=== PATIENT | male | born 1935 | race Caucasian/White ===

== ENCOUNTER 2018-04-27 10:15 | Inpatient (IN) | payer MEDICARE ==
[~2018-04-27] VITALS: Ht 177.8 cm; Wt 59.6 kg
[~2018-04-27 10:15] MED LIST: CLOP75 PO; LEVO750 PO
[2018-04-27 10:41] LABS: BASOPHILS ABSOLUTE AUTO 0.06 K/mm3 (0.00-0.23); BASOPHILS PERCENT AUTO 0 % (0-2); EOSINOPHILS ABSOLUTE AUTO 0.02 K/mm3 (0.00-0.68); EOSINOPHILS PERCENT AUTO 0 % (0-6); Hemoglobin 15.2 g/dL (13.5-17.5); IMMATURE GRAN PERCENT AUTO 1 % (0-1); LYMPHOCYTES PERCENT AUTO 5 % (21-46); MONOCYTES ABSOLUTE AUTO 1.47 K/mm3 (0.16-1.47); MONOCYTES PERCENT AUTO 9 % (4-13); Mean Corpuscular HGB 31.3 pg (26.0-34.0); Mean Corpuscular Volume 95 fL (80-100); Mean Platelet Volume 9.5 fL (9.1-12.4); NEUTROPHILS ABSOLUTE AUTO 14.14 K/mm3 (1.96-9.15); NEUTROPHILS PERCENT AUTO 85 % (41-73); Platelet Count 259 K/mm3 (150-400); RDW Coefficient Variation 15.1 % (11.7-14.2); RDW Standard Deviation 52.5 fL (35.1-46.3); Red Blood Cell Count 4.85 M/mm3 (4.30-5.90); White Blood Cell Count 16.69 K/mm3 (4.00-11.30)
[2018-04-27 10:58] LABS: Alanine Aminotransfer (ALT/SGP 47 U/L (12-78); Albumin, Blood 3.4 g/dL (3.4-5.0); Albumin/Globulin Ratio 0.8 (0.8-1.8); Alk Phos 93 U/L (50-136); Anion Gap 10 mmol/L (6-16); Aspartate Aminotrans (AST/SGOT 179 U/L (12-37); Bilirubin, Total 0.9 mg/dL (0.1-1.0); Blood Urea Nitrogen 16 mg/dL (8-24); Bun/Creatinine Ratio 22.5 (12.0-20.0); CO2, Blood 26 mmol/L (21-32); Calcium, Blood 8.8 mg/dL (8.5-10.1); Chloride, Blood 105 mmol/L (98-108); Creatinine, Blood 0.71 mg/dL (0.60-1.20); Globulin, Blood 4.2 g/dL (2.2-4.0); Glomerular Filtration Rate >60 (60-); Glucose, Blood 125 mg/dL (70-99); Potassium, Blood 3.9 mmol/L (3.5-5.5); Sodium, Blood 141 mmol/L (136-145); Total Protein, Blood 7.6 g/dL (6.4-8.2)
[2018-04-27 11:54] LABS: CPK Creatine Kinase 5060 U/L (39-308); Troponin I <0.015 ng/mL (0.000-0.040)
[2018-04-27 11:56] LABS: Source, Urine Catheter
[2018-04-27 12:08] LABS: Creatine Kinase MB 17.1 ng/mL (0.0-3.6); Creatine Kinase MB Index 0.3 (0.0-4.0)
[2018-04-27 12:15] LABS: Bilirubin, Urine Neg (Neg); Blood, Urine 2+ (Neg); Glucose Qualitative, Urine Neg (Neg); Ketones, Urine 3+ (Neg); Leukocyte Esterase, Urine Neg (Neg); Nitrite, Urine Neg (Neg); Protein, Urine 2+ (Neg); Specific Gravity, Urine 1.025 (1.003-1.022); Urobilinogen, Urine 1+ (Normal)
[2018-04-27 12:32] LABS: Appearance, Urine Clear (Clear); Color, Urine Yellow (P-Yellow)
[2018-04-27 12:33] LABS: White Blood Cells, Urine Not Seen /hpf (0-5)
[2018-04-27 12:34] LABS: Bacteria Not Seen /hpf; Mucus Light (0-Heavy); Squamous Epithelial Cells Few /hpf (Few)
--- NOTE | 2018-04-27 13:29 | NUR ---
Recieved Palliative consult for this patient. Pt was last seen in the hospital in September of 2017. At that time, he was found wandering in a field; family did not notice him leaving the home. This admit, his family found him on the couch, after being there at a full day and a full night, according to notes. Will plan on inital visit to assess how much education the family needs to take care of this pt, or support placement if family is unable to care for him with his dementia. Will remain available.
--- NOTE | 2018-04-27 15:00 | NUR ---
PT ARRIVED VIA GURNEY FROM ED. FEET DIRTY BUT ATTENDS CLEAN. SKIN VERY DRY. FELL ASLEEP ON ARRIVAL TO ROOM AND BED. NO FAMILY IN ATTENDANCE.
--- NOTE | 2018-04-27 19:11 | NUR ---
SHIFT SUMMARY PT HAS BEEN NONVERBAL ACCEPT A FEW INSTANCES OF MUMBLED NOISES WHILE LOOKING AT STAFF. COMPLETED BED BATH GIVEN WITH CREAM APPLIED TO SKIN. GENITALS RED AND MACERATED WITH TWO OPEN SPOTS ON UNDERSIDE OF PENIS. PROTECTIVE CREAMS APPLIED. LLE ANTERIOR DEAN WITH LARGE SCAB AND REDNESS ENCIRCLING LEG BUT MINIMAL HEAT. WINCES WHEN R FOOT TOUCHED OR MOVED. UNABLE TO DO EXTREMITY CHECKS FOR NEURO DUE TO INABILITY TO FOLLOW DIRECTIONS. HAS BEEN SLEEPING SINCE BATH COMPLETED. IV FLUIDS INFUSING. DOES HAVE REDDENED AREAS ON HIPS, HEELS, COCCYX WELL BRUISING TO R FLANK AND ARMS, AND A SCAB TO R KNEE.
--- NOTE | 2018-04-28 05:22 | NUR ---
SHIFT SUMMARY PATIENT REMAINS NONVERBAL WITH EYES CLOSED. OPENED EYES ONCE DURING VITALS. WILL MOVE ARMS AND SQUEEZE FINGERS WHEN PLACED IN HIS HANDS AT TIMES. NPO AND BEDFAST. PIV REMAINS INTACT. LF FINISHED INFUSING AT 75mL/HR X ONE BAG. MINIMAL RESPONSE FOR NEURO CHECKS AND NOT ABLE TO FOLLOW DIRECTIONS. NO S/S OF PAIN, SOB, AND N/V. VSS/AFEBRILE. BED ALARM ACTIVATED. SISTER WILL VISIT IN A.M. CALL LIGHT IN REACH. BED IN LOWEST POSITION. WILL CONTINUE TO MONITOR UNTIL DAY SHIFT NURSE ASSUMES CARE.
[2018-04-28 05:23] LABS: BASOPHILS ABSOLUTE AUTO 0.07 K/mm3 (0.00-0.23); BASOPHILS PERCENT AUTO 1 % (0-2); EOSINOPHILS ABSOLUTE AUTO 0.29 K/mm3 (0.00-0.68); EOSINOPHILS PERCENT AUTO 2 % (0-6); Hematocrit 42.1 % (37.0-53.0); Hemoglobin 13.3 g/dL (13.5-17.5); IMMATURE GRAN ABSOLUTE AUTO 0.07 K/mm3 (0.00-0.10); IMMATURE GRAN PERCENT AUTO 1 % (0-1); LYMPHOCYTES PERCENT AUTO 11 % (21-46); MONOCYTES PERCENT AUTO 10 % (4-13); Mean Corpuscular HGB 30.7 pg (26.0-34.0); Mean Corpuscular HGB Conc 31.6 g/dL (31.5-36.5); Mean Corpuscular Volume 97 fL (80-100); Mean Platelet Volume 9.4 fL (9.1-12.4); NEUTROPHILS ABSOLUTE AUTO 10.89 K/mm3 (1.96-9.15); NEUTROPHILS PERCENT AUTO 76 % (41-73); Platelet Count 221 K/mm3 (150-400); RDW Coefficient Variation 15.5 % (11.7-14.2); RDW Standard Deviation 55.9 fL (35.1-46.3); Red Blood Cell Count 4.33 M/mm3 (4.30-5.90); White Blood Cell Count 14.42 K/mm3 (4.00-11.30)
[2018-04-28 05:46] LABS: Anion Gap 9 mmol/L (6-16); Blood Urea Nitrogen 13 mg/dL (8-24); Bun/Creatinine Ratio 20.7 (12.0-20.0); CO2, Blood 26 mmol/L (21-32); Calcium, Blood 8.1 mg/dL (8.5-10.1); Chloride, Blood 110 mmol/L (98-108); Creatinine, Blood 0.63 mg/dL (0.60-1.20); Glomerular Filtration Rate >60 (60-); Glucose, Blood 77 mg/dL (70-99); Magnesium, Blood 2.2 mg/dL (1.6-2.4); Potassium, Blood 3.6 mmol/L (3.5-5.5); Sodium, Blood 145 mmol/L (136-145)
[2018-04-28 05:56] LABS: CPK Creatine Kinase 2409 U/L (39-308)
--- NOTE | 2018-04-28 11:40 | NUR ---
Pt was sleping when I entered the room and awakened slightly as I began to talk with him. He was so sleepy that all I could ask is if he would like some prayer. I provided prayer, patient thanked me then fell back to sleep. Pt continued resting peacefully with no signs of stress.
--- NOTE | 2018-04-28 15:10 | NUR ---
Phone call to family member, Willem, the patient uncle. My purpose for the call was to gather information on the patient's prior level of functioning in the home before admission. Willem states that pt lives in a home with himself, pt's mother (Namita), and the patient's son, Shawn. Pt usually is able to get around with a walker and sometimes walks without it at home. He requires help for showering and dressing. Willem cooks three meals per day, however, he reports that the patient just sits and looks at it for a while; sometimes does not eat the meal. Pt likes late night meals and is often up late nights eating. Previously, the patient lived with his daughter for a short period of time after his last year. Willem moved him over to [place] after the patient was told he was going to from skin cancer. Pt sees Dr. Riojas, and some problem areas were taken off - apparently "cured" the pt, per Willem. Pt is incontinent. Antibiotics were ordered by this doctor, and Willem reports that pt did not take medication properly - and in fact would put them in his mouth and let them set on his tongue without swallowing it. It seems from my conversation with Willem (who is the patient's uncle), that the patient's dementia has been in a steep decline. He is losing ability to perform ADLs, does not converse. FAST score is 7a, and now is perhaps worse, as ambulation has not been evaluated by PT. Recommend evaluation to determine actual ability and if the patient is able to follow directions. KPS score is 50%, PPS score is 50%. Has extensive disease. Will coordinate with older adult social work specialist. There is an open [facility] case to investigate neglect. There may be evidence to assert that the family was ill equiped to handle taking care of a severely demented patient. Pt was found wandering around in a field about 6 months ago without family's knowledge. Will follow up with family as needed for education. Pt's decision maker is to be his mother, Namita. She had her 89 year birthday over , and is still able to make choices, per Willem.
--- NOTE | 2018-04-28 18:00 | NUR ---
SHIFT SUMMARY PT A LITTLE MORE ALERT TODAY BUT STILL MINIMAL VERBAL RESPONSE. HAS DEVELOPED A MOIST COUGH. MOVING A LITTLE MORE IN BED. SISTER AND BROTHER HERE TO SEE PT THIS MORNING. REMAINS NPO AT THIS TIME. APD IN TO SEE PT APPROX 1030 AND REVIEWED PHOTOS OF PTS SKIN ISSUES.
--- NOTE | 2018-04-28 22:28 | NUR ---
PATIENT PULLING AT IV CORDS AND POLE AND WON'T LET GO. PATIENT NOT ABLE TO REORIENT AND FOLLOW DIRECTIONS. IV FLUIDS STOPPED UNTIL PATIENT IS SLEEPING AND WILL RESTART. CALL LIGHT IN REACH.
--- NOTE | 2018-04-29 00:29 | NUR ---
D5 1/2 NS KCL 10 MEQ INFUSING AT 75mL/HR. PATIENT SLEEPING. CALL LIGHT IN REACH. BED ALARM ACTIVATED.
--- NOTE | 2018-04-29 04:19 | NUR ---
SHIFT SUMMARY PATIENT MINIMALLY MORE ALERT THIS SHIFT. VERBAL WITH REPOSITIONING ON MOVEMENT. OPENS EYES WITH REPOSITIONING. EXPLAIN PROCEDURE WITH PATIENT TO REDUCE AGGRESSION. PATIENT WILL REPOSITION IN BED. PIV REMAINS INTACT. D5 1/2 NS [id number] INFUSING AT 75/HR. PATIENT AGGRESSIVE AT START OF SHIFT PULLING ON IV CORDS AND NOT RELEASING. IV FLUIDS STOPPED UNTIL PATIENT SLEPT. NO S/S OF PAIN, SOB, AND N/V. VSS/AFEBRILE. BED ALARM ACTIVATED. CALL LIGHT IN REACH. BED IN LOWEST POSITION. WILL CONTINUE TO MONITOR UNTIL DAY SHIFT NURSE ASSUME CARE.
[2018-04-29 05:22] LABS: Anion Gap 9 mmol/L (6-16); Blood Urea Nitrogen 10 mg/dL (8-24); Bun/Creatinine Ratio 15.9 (12.0-20.0); CO2, Blood 25 mmol/L (21-32); Calcium, Blood 7.9 mg/dL (8.5-10.1); Chloride, Blood 109 mmol/L (98-108); Creatinine, Blood 0.63 mg/dL (0.60-1.20); Glomerular Filtration Rate >60 (60-); Glucose, Blood 131 mg/dL (70-99); Potassium, Blood 3.4 mmol/L (3.5-5.5); Sodium, Blood 143 mmol/L (136-145)
[2018-04-29 05:38] LABS: CPK Creatine Kinase 1476 U/L (39-308)
--- NOTE | 2018-04-29 06:31 | NUR ---
PATIENT PULLED IV WHEN REPOSITIONING. NEW PIV PLACED. CALL LIGHT IN REACH.
--- NOTE | 2018-04-29 17:01 | NUR ---
PATIENT ORIENTED TO SELF ONLY, MOSTLY NONVERBAL. MULTIPLE SKIN ISSUES WITH FOAM DRESSINGS IN PLACE. TURNING Q2 HOURS. PIVOT TRANSFERS WITH GAIT BELT, FWW AND 2 ASSIST. REMAINS NPO. 20G RFA IV WNL WITH FLUIDS RUNNING AT 75ML/HR. FALL PRECAUTIONS IN PLACE. PT/OT/ST EVALUATED PATIENT. NO ACUTE CHANGES THIS SHIFT.
--- NOTE | 2018-04-29 21:24 | NUR ---
2010 PT LYING IN BED, EYES CLOSED, OCCASIONALLY WILL OPEN EYES BRIEFLY WHEN SPOKEN TO. ANSWERS YES OR NO OCCASIONALLY WHEN ASKED QUESTIONS AND DID SAY "WHAT?" ONCE WHEN HIS NAME WAS SAID. DENIES ANY DISCOMFORT AT THIS TIME. PT HAS HAD NO DOCUMENTED BM SINCE 04/27, WILL ASK DR FOR BOWEL CARE ORDERS. PT HAS REDNESS IN LE'S, BRUISES AND SCABS TO LE'S AND UE'S, WHITE NONBLANCHING SPOTS ON BOTTOM, EDEMA IN BILAT FEET WITH R BEING > THAN L. DAY RN REPORTED THAT WHEN PT WAS UP HIS R KNEE APPEARED TO BE STIFF. NO OTHER APPARENT SIGNS OF DISTRESS. CALL LIGHT IS IN REACH. BED ALARM IS ON.
--- NOTE | 2018-04-29 23:09 | NUR ---
ASSISTED RUBBER FACTORY WORKER IN TURNING AND CHANGING THE PATIENT. PT TOLERATED PROCEDURE WELL. NO APPARENT SIGNS OF DISTRESS. DENIES NEED FOR ANYTHING AT THIS TIME. CALL LIGHT IS IN REACH. BED ALARM IS ON.
--- NOTE | 2018-04-30 01:53 | NUR ---
PT LYING IN BED, AWAKE, DENIES NEED FOR ANYTHING AT THIS TIME. NO APPARENT SIGNS OF DISTRESS. CALL LIGHT IS IN REACH. BED ALARM IS ON.
--- NOTE | 2018-04-30 03:06 | NUR ---
PT IS ALERT, ORIENTED TO FAMILY. MOSTLY NONVERBAL BUT WILL SAY YES OR NO OCCASIONALLY AND SOMETIMES A COUPLE OF WORDS OCCASIONALLY. PT HAS NONBLANCHING WHITE AREAS ON BOTTOM, TURNING PATIENT Q2 HRS. PT HAS MULT SCABS AND BRUISES ALL OVER. BLISTERES ON R HIP. REDNESS AND EDEMA ON LE'S WITH THE R BEING MORE SWOLLEN THAN THE L. PER DAY RN, WHEN PT WAS UP, HIS R KNEE APPEARED TO BE STIFF. PT DENIED ANY DISCOMFORT FOR THIS SHIFT. ON RA AT 90%. NEEDS PLACEMENT.
--- NOTE | 2018-04-30 03:22 | NUR ---
PT LYING IN BED, EYES CLOSED, APPEARS TO BE RESTING. BREATHING IS EVEN, UNLABORED. NO APPARENT SIGNS OF DISTRESS. CALL LIGHT IS IN REACH. BED ALARM IS ON.
--- NOTE | 2018-04-30 05:02 | NUR ---
ASSISTED BANDER HAND IN CHANGING AND REPOSITIONING PT. PT IS SLIGHTLY NON COOPERATIVE WITH BEING MOVED AROUND. PT'S O2 WAS 86%, ATTEMPTED TO PUT 2L O2 NC ON PT, BUT PT IMMEDIETELY PULLED O2 OFF. WILL CONT TO MONITOR. NO OTHER APPARENT SIGNS OF DISTRESS. CALL LIGHT IS IN REACH. BED ALARM IS ON.
--- NOTE | 2018-04-30 05:57 | NUR ---
PT LYING IN BED, EYES CLOSED, APPEARS TO BE RESTING. BREATHING IS EVEN, UNLABORED. NO APPARENT SIGNS OF DISTRESS. CALL LIGHT IS IN REACH. BED ALARM IS ON. NO OTHER CHANGES THIS SHIFT.
[2018-04-30 09:06] LABS: Anion Gap 7 mmol/L (6-16); Blood Urea Nitrogen 8 mg/dL (8-24); Bun/Creatinine Ratio 14.1 (12.0-20.0); CO2, Blood 26 mmol/L (21-32); Calcium, Blood 7.8 mg/dL (8.5-10.1); Chloride, Blood 108 mmol/L (98-108); Creatinine, Blood 0.57 mg/dL (0.60-1.20); Glomerular Filtration Rate >60 (60-); Glucose, Blood 128 mg/dL (70-99); Potassium, Blood 3.3 mmol/L (3.5-5.5); Sodium, Blood 141 mmol/L (136-145)
--- NOTE | 2018-04-30 17:06 | NUR ---
PATIENT ORIENTED TO SELF, MOSTLY NONVERBAL. ST/PT ATTEMPTED TO WORK WITH PATIENT TODAY WITH LITTLE SUCCESS. PATIENT REMAINS NPO. K+ 3.3 THIS AM AND WAS REPLACED. 20G IV TO R FA WNL. TURNING Q2 HOURS, INCONTINENT OF URINE/STOOL. CONSULT FAXED TO ED FOR DR. ALLEN TO COME EVALUATE PATIENT. NO FAMILY AT BEDSIDE THIS SHIFT. MULTIPLE SKIN ISSUES WITH FOAM DRESSING TO HIPS BILATERALLY. LOVENOX FOR DVT PROPHYLAXIS. NO ACUTE CHANGES THIS SHIFT.
--- NOTE | 2018-04-30 21:54 | NUR ---
2100 PT LYING IN BED, DENIES ANY DISCOMFORT AT THIS TIME. SCABS AND BRUISES ON UE'S AND LE'S, REDNESS AND EDEMA IN LE'S/FEET WITH R > L. NONBLANCHING WHITE AREAS ON BOTTOM. BLISTERS ON R HIP. PT IS VERY WITHDRAWN, MOSTLY NONVERBAL WITH OCCASIONAL 1-2 WORD RESPONSES. PT DID GIVE VERBAL PERMISSION FOR ME TO SPEAK TO HIS NECHETNA COPELAND WHO CAME TO SEE HIM BRIEFLY TONIGHT. NO OTHER APPARENT SIGNS OF DISTRESS. CALL LIGHT IS IN REACH. BED ALARM IS ON. PT DID HAVE A COUPLE MORE VISITORS, ONE OF WHOM I ASSUME IS HIS SON BECAUSE HE REFERRED TO THE PATIENT "DAD", THE OTHER WAS A YOUNGER GENTLEMEN AND I AM NOT SURE OF THAT PERSONS RELATION TO THE PATIENT. THEY STAYED ABOUT 45 MINUTES OR SO AND THEN USED THE [facility] PHONE TO CALL FOR A RIDE.
--- NOTE | 2018-05-01 01:05 | NUR ---
ASSISTED BENCH LOOM WEAVER TO TURN AND CHANGE PATIENT, ADMINISTERED A STOOL SOFTENER SUPPOSITORY, WILL EVAL FOR EFFECT. PT TOLERATED WELL. NO APPARENT SIGNS OF DISTRESS. CALL LIGHT IS IN REACH. BED ALARM IS ON.
--- NOTE | 2018-05-01 02:08 | NUR ---
PT LYING IN BED, AWAKE, DENIES NEED FOR ANYTHING. NO APPARENT SIGNS OF DISTRESS. CALL LIGHT IS IN REACH.
--- NOTE | 2018-05-01 03:11 | NUR ---
PT IS ALERT BUT WITHDRAWN. ORIENTED TO FAMILY. ON RA, PT WILL NOT LET US PUT O2 ON HIM, O2 SAT IS 90%. PT DENIES ANY DISCOMFORT FOR THIS SHIFT BUT HE HAS STARTED TO COUGH. REDNESS AND EDEMA IN LE'S/FEET WITH R > L. SCABS AND BRUISES IN UE'S AND LE'S. SOME REDNESS ON HIS BOTTOM. USING CREAM ON HIS BOTTOM AND TURNING Q2 HOURS. LAST BM 04/27, GAVE SUPPOSITORY.
--- NOTE | 2018-05-01 05:21 | NUR ---
0400 PT LYING IN BED, EYES CLOSED, APPEARS TO BE RESTING. WAKES EASILY TO VERBAL STIMULI. NO APPARENT SIGNS OF DISTRESS. CALL LIGHT IS IN REACH.
[2018-05-01 05:22] LABS: Anion Gap 6 mmol/L (6-16); Blood Urea Nitrogen 8 mg/dL (8-24); Bun/Creatinine Ratio 15.1 (12.0-20.0); CO2, Blood 25 mmol/L (21-32); Calcium, Blood 7.9 mg/dL (8.5-10.1); Chloride, Blood 107 mmol/L (98-108); Creatinine, Blood 0.53 mg/dL (0.60-1.20); Glomerular Filtration Rate >60 (60-); Glucose, Blood 122 mg/dL (70-99); Potassium, Blood 3.9 mmol/L (3.5-5.5); Sodium, Blood 138 mmol/L (136-145)
--- NOTE | 2018-05-01 05:22 | NUR ---
PT LYING IN BED, EYES CLOSED, APPEARS TO BE RESTING. BREATHING IS EVEN, UNLABORED. NO APPARENT SIGNS OF DISTRESS. CALL LIGHT IS IN REACH. NO OTHER CHANGES THIS SHIFT.
[2018-05-01 05:23] LABS: CPK Creatine Kinase 604 U/L (39-308)
--- NOTE | 2018-05-01 14:41 | NUR ---
PAL CARE VISIT AND CASE CONFERENCE NOTE: Called by pt's RN, who is very concerned regarding pt's cont. decline with less responsiveness, increased weakness and nonverbal indicators of pain with change of positions, mvmt. Pt is not awake or able to take in PO nutrition or fluids. There has not been family in to discuss care with during day. No identified decision maker re: goals of care and current full code status at this time. EMR and Palliative Care notes reviewed. Pt's mother is 89 and recent contact with family memeber stated she was the medical decision maker. I called number for mom, TANA but call did not go thru and there was no voicemail available. I called the # for son, Shawn and reached Willem, who tells me he is the pt's brother. Willem felt Shawn, pt's son, would be the most appropriate family spokesperson/decision maker. Shawn came on the line and was very engaged in the conversation and voices similar concerns re: his dad's decline. He states his dad has withdrawn further and failed horribly since his (Shawn's mom) a year or so ago. I reviewed current care and code status and goals of care with Sahwn. Also discussed complications of bedrest, poor nutritional intake and comfort care. At this time Shawn would like to change his dad's code status to DNR. He does not want comfort care because he feels his mothers demise was hastened by having her on "comfort care". He would like to talk to the Dr further about comfort care tomorrow and plans to be in around 10 am. He does not want any agressive treatment initiated that would cause his dad more pain. He understands that any treatment done would not alter his end stage dementia state. I reviewed recent hip and chest xrays at his request. Results of my conversation shared with pt's RN and Dr May with orders obtained and entered for DNR. In assessing pt in his room he was in a side lying position with eyes closed, appears to be sleeping. He did not wake to verbal or tactile stimuli. I did not observe any nonverbal indicators of pain or distress while he was sleeping. RN reports painful behaviours noted with change of position or movement. Plan to f/u for support with pt's son tomorrow and for s/s management ongoing. I found no Care Management notes available to review on this admission but understood they were following from prev palliative care note. I will leave a voice mail message for care management also and request involvement again.
--- NOTE | 2018-05-01 15:10 | NUR ---
Addendum to previous Palliative Care note: Discussed use of tylenol suppository for pain per eMAR with RN.
--- NOTE | 2018-05-01 16:37 | NUR ---
PATIENT VERY DROWSY WITH VERY LITTLE VERBAL RESPONSE. 20G IV TO R FA WITH FLUIDS RUNNING. PATIENT REMAINS NPO. INCONITNENT OF URINE, PAINFUL WITH REPOSITIONING AND CHANGING. PALLIATIVE CARE SPOKE WITH FAMILY TODAY AND PATIENT WAS CHANGED TO DNR. MULTIPLE SKIN ISSUES WITH FOAM DRESSINGS COVERING. VSS THIS SHIFT, ON RA. ATTEMPTED TO DO ORAL CARE, BUT PATIENT WOULD NOT ALLOW. FALL PRECAUTIONS IN PLACE PER UNIT PROTOCOL.
--- NOTE | 2018-05-02 07:29 | NUR ---
SUMMARY: PT CONT'S VERY DROWSY, OPENING EYES TO VERBAL CUES BUT NONRESPONSIVE TO Q'S. FAMILY VISITED FROM [facility] THIS SHIFT AND SHAKA CAME IN PER THEIR REQUEST. HE REMAINED NONVERBAL WHILE THEY WERE HERE WELL. PT WAS REPOSITIONED Q2H W/ATTENDS CHANGED PRN FOR URINARY INCONTINENCE. MEPILIXES PRESENT TO HIPS AND BUTTOCKS AND CREAM APPLIED TO CAITIE AREA. PT ASSISTED W/TURNS BUT IS STIFF/RIGID AND HAS LEG CONTRACTURES. HEEL PROTECTORS IN PLACE. PT WAS MADE DNR DURING DAY SHIFT BUT NO DECISION HAS BEEN MADE TO MAKE HIM COMFORT CARE YET. HE REFUSES ORAL CARE AND ORAL INPUT. IVF INFUSING. NO ACUTE CHANGES, VSS/AFEBRILE. WILL MONITOR AND REPORT TO DAY RN.
--- NOTE | 2018-05-02 11:59 | NUR ---
Pt has worsened. She is back on bipap, requiring restraints. Reviewed with Cecilia, nurse. Will follow up with family when they arrive today, Cecilia to notify when they are here. Plan on discussing plan of care with Nickie, daughter.
--- NOTE | 2018-05-02 15:21 | NUR ---
Reviewed with Dr. May. Followed up with family. Shawn, son, is bedside. Looks like placement is what is needed here. Family ill-equiped to take care of patient with advanced dementia. Viviana, enterprise resource planner is also present and will work on placement. Reviewed with nurse Nadine.
--- NOTE | 2018-05-02 16:07 | NUR ---
Multiple attempts to see pt proved unsuccessful as pt was asleep and family was not present.
--- NOTE | 2018-05-02 17:49 | NUR ---
SHIFT SUMMARY PATIENT HAS WOKEN TO VOICE THIS SHIFT. HE MUMBLES YES NO WHICH APPEARS APPROPRIATE TO THE QUESTION. HE IS ABLE TO FOLLOW SIMPLE DIRECTIONS WITH TURNS AND CHANGES. MEPILEX'S IN PLACE FOR PREVENTION OF ANY PRESSURE BREAKDOWN. PILLOWS PLACES AT BONY PROMINENCES WELL. CURRENTLY NPO PENDING SPEECH EVAL.
--- NOTE | 2018-05-03 04:38 | NUR ---
SUMMARY: PT MORE INTERACTIVE THIS SHIFT AND IS ANSWERING YES/NO Q'S. HE IS MORE ALERT AND OPENS EYES TO VOICE AND SPONTANEOUSLY. HE REMAINS FLAT AND WITHDRAWN W/FTT APPEARANCE BUT STRENGTH SLIGHTLY IMPROVED AND HE ASSISTS W/REPOSITIONING. PT DENIES PAIN AND ALL OTHER COMPLAINTS BUT CONT'S TO REFUSE MOUTH CARE AND ORAL INTAKE. ATTENDS CHANGED PRN FOR INCONTINENCE AND PILLOWS PLACED AT BONY PROMINENCES FOR SBD PREVENTION. MEPILEXES REMAIN C/D/I TO HIPS AND BUTTOCKS. BLISTERS ON HIPS STILL PRESENT AND OTHER VARIOUS ABRASIONS, REDNESS AND BRUISES OBSERVED TO BLE'S. LOTION APPLIED TO CAITIE AREA AND BUTTOCKS, SKIN CONDITION IMPROVIND. NO ACUTE CHANGES, VSS/AFEBRILE.
--- NOTE | 2018-05-03 15:08 | NUR ---
attempted to shave and do oral care on patient during bed bath. patient refused these care. closed mouth tight and swatted my hands away. Patient responded to name stating "What", and saying "leave me alone". followed directions regarding turning with bed bath care. attempted to reposition to r side, continues to get himself back onto l side. pillows positioned on pressure points.
--- NOTE | 2018-05-04 04:23 | NUR ---
SHIFT SUMMARY: PT MOSTLY NONVERBAL. ANSWERED Y/N QUESTIONS DURING ASSESSMENT. COOPERATIVE WITH CARE. PT WAS TURNED AND CHANGED T/O SHIFT. PILLOW PLACED BETWEEN KNEES. PT VERY STIFF AND RIGID. MEPILEXES TO BILAT HIPS FOR EXTRA PROTECTION. NO COMPLAINTS. PT RESTED WELL. NO ACUTE CHANGES. WILL CONTINUE TO MONITOR AND PROVIDE CARE UNTIL SHIFT REPORT.
--- NOTE | 2018-05-04 16:10 | NUR ---
SHIFT SUMMARY- PT AXO TO SELF. PT ABLE TO TELL ME HIS NAME AND THIS AM. PT ABLE TO ANSWER YES/NO QUESTIONS. PT STILL SPEAKING IN A WHISPERY VOICE. ST IN TO TODAY TO EVALUATE PT. PHYISICAL THERAPY AND OT IN TO SEE PT. OT WAS ABLE TO GET PT TO QUALITY CONTROL PROJECTIONIST FRONT OF THE BED FOR A FEW SECONDS WITH 1 ASSIST, GAIT BELT AND FWW. PT DENIES PAIN. DENIES N/V. DENIES SOB. RESP E/U ON RA. PT ON BEDREST AT THIS TIME. TURNS Q2H. PT IS AWAITING PLACEMENT. NO OTHER SIGNIFICANT CHANGES THIS SHIFT.
--- NOTE | 2018-05-05 05:21 | NUR ---
Rn summary: Patient is failure to thrive. Pt has not responded to this writer producer verbally at all. Pt breath sounds are diminished, breaths are shallow and he doesnt understand to take a breath breath when asked. Patient has a weak non productive cough. He is incontinent of urine and has been turned and change frequently. Urine output is getting less. Not awake enough to give fluids to at this time. Pt with multiple skin issues, small scabs all over back and side of abdomen, mepilex to chaim hips, red area left dukes. Plan is for placement or home with hospice if okay with [facility]PS. Will continue to monitor.
--- NOTE | 2018-05-05 10:37 | NUR ---
AM ASSESSMENT PT LYING ON L SIDE, ALMOST POSITION. HE DOES NOT OPEN EYES TO VERBAL STIM OR PHYSICAL AROUSAL. DOES NOT FOLLOW ANY COMMANDS OR NOD YES/NO @ THIS TIME. SPOKE TO SPEECH THERAPIST R/T FEEDING PLAN, STATE DO NOT ATTEMPT TO GIVE ORAL UNLESS PT AWAKE/ALERT & ASKING FOR SOMETHING TO EAT/DRINK. BP 98/57, TEMP 99.6
--- NOTE | 2018-05-05 11:19 | NUR ---
TRIED TO POSITION PATIENT OFF HIS LEFT SIDE. PATIENT PUSHES TO RETURN TO THE LEFT SIDE. WE PLACED TWO PILLOWS UNDER HIS LEFT SIDE AND ONE BETWEEN HIS KNEES TRYING TO KEEP PATIENT OFF LEFT SIDE FOR A LITTLE WHILE.. ALSO PLACED HEEL PROTECTORS
--- NOTE | 2018-05-06 05:55 | NUR ---
Rn summary: Patient has opened eyes spontaniously this shift, he has nodded yes and no appropriately to questions. He shakes his head no to having pain. Pt has been incontinent of urine and has been turned q 2hours. He continues to have mepilex to chaim hips, clean dry and intact. Pt has rash/scabs on back and around to sides of abdomen. Pt continues to refuse oral care, he resists even having his lips cleaned with a cool cloth. Slight temp of 99.8 this am. Pt is NPO and has no fluids going. Waiting for either placement or DC home on hospice per case manaement. Bed to lowest positon. Call light i reach although he has not used it.
--- NOTE | 2018-05-06 12:46 | NUR ---
PT IS MORE ALERT TODAY, OPENS EYES TO NAME, ANSWERS YES/NO TO VERY SIMPLE QUESTIONS, WHEN ASKED IF HUNGRY OR THISTY STATES "GETTING THAT WAY". HE HAS TAKEN SM AMTS HONEY THICK FLUIDS. CALLED SPEECH THERAPY TO SEE IF THEY WILL RE-EVAL. PT CONTINUES VERY WEAK/FATIGUED HOWEVER SAT UP ON EDGE OF BED WITH ASSIST DURING OCC THERAPY.
--- NOTE | 2018-05-06 14:21 | NUR ---
SUMMARY PT CONTINUES WEAK/FATIGUED. DOES NOT ATTEMPT TO GET OOB OR CHANGE POSITIONS. TURN & SUPPORT W PILLOWS APPROX Q2. HE HAS BEEN MORE ALERT TODAY, OPENING EYES TO VERBAL STIM/NAME. ABLE TO STATE THIRST/HUNGER, ST EVAL FROM YESTERDAY OK FOR SPOONFULS HONEY THICK FLUIDS IF ALERT/AWAKE, HAVE ASSISTED W FLUIDS MULT X'S TODAY. CALLED ST FOR RE-EVAL HOWEVER THEY HAVE NOT BEEN IN YET TODAY. ASSISTED PT TO SIT UP TODAY W OCC THERAPY, HE WAS ABLE TO PARTICIPATE HOWEVER VERY WEAKLY. NO SYMPTOMS OF PAIN DURING THERAPY. VSS.
--- NOTE | 2018-05-07 04:57 | NUR ---
SHIFT SUMMARY RESPONDS TO VERBAL STIMULI; ONE-TWO WORD ANSWERS TO SIMPLE QUESTIONS. NO NON-VERBAL S/SX OF PAIN/DISCOMFORT. REPOSITIONED T/O SHIFT. SLIGHT TEMPERATURE NOTED THIS AM. APPEARED TO REST MUCH OF SHIFT. NO OTHER ACTUE CHANGES NOTED OVERNIGHT. BED IN LOWEST POSITION. ALARM ON. CALL LIGHT WITHIN REACH. WCTM. REPORT TO ONCOMING RN.
--- NOTE | 2018-05-07 16:18 | NUR ---
SHIFT SUMMARY. PT LETHARGIC, APPEARS TO SLEEPING MOST OF THE SHIFT. AROUSES WITH VERBAL STIMULATION. PT APPEARED PAINFUL THIS AM WITH REPOSITIONING AND INCONTINENCE CARE. PT VERY STIFF JOINTS, PRN APAP SUPPOSITORY GIVEN. NO RESPIRATORY DISTRESS, PT WITH SHALLOW BREATHING AND DIM LUNGS SOUNDS. NO OBSERVED N/V. PT IS VERY FRAIL APEARING, NO PO INTAKE THIS SHIFT, PT REFUSING ORAL CARE PER MACHINE SPECIALIST. MEPILEX PREVENTATIVE DRESSINGS TO BILATERAL HIPS, COCCYX C/D/I. NO NEW CHANGES. NO VISITORS THIS SHIFT.
--- NOTE | 2018-05-08 04:28 | NUR ---
SHIFT SUMMARY RESPONDS TO VERBAL STIMULI/NAME. NO VERBAL OR NON-VERBAL S/SX OF PAIN/DISCOMFORT UNTIL THIS AM. WILL MEDICATE PER EMAR. REFUSED VITAL SIGNS AT BEGINNING OF SHIFT; TAKEN @ 2233 VS REMAIN ON TREND WITH PREVIOUS. SLIGHT TEMP NOTED @ 99.2. TURNED PERIODICALLY THROUGHOUT SHIFT. APPEARED TO REST OFF AND ON. BED IN LOWEST POSITION. ALARM ON. CALL LIGHT IN REACH. WCTM. REPORT TO ONCOMING RN.
--- NOTE | 2018-05-08 10:54 | NUR ---
FAMILY AT BEDSIDE. PALLIATIVE CARE NOTIFIED. HEARD PT COUGHING WHILE SITTING OUTSIDE OF ROOM. HEARD FAMILY MEMBER SAY, "DID HE EAT IT ALL?" HEARD REPLY FROM OTHER FAMILY MEMBER, "HE ATE IT ALL," THE OTHER FAMILY MEMBER REPLIED, "OH GOOD." WILL SPEAK WITH FAMILY.
--- NOTE | 2018-05-08 13:46 | NUR ---
Called and spoke with Willem, the patient's brother. Reviewed condition of the pt and requested that they come in to meet and discuss plan of care. After they arrive, I tell them that he is advancing in his dying process and there is a need to change is care plan to accomodate his new needs. Reviewed comfort care risk and benefit. They finally agree to place the patient on comfort care. They ask again about going home on hospice. This is the case that [facility] is currently investigating and it is not clear yet if this patient can return home with the family. Agreed that he would likely be better if he is around family. Encouraged to make conversation in the room. They are turning on his favorite shows and will spend time in the room with him. Encouraged sharing memories and encourage PO intake. Family states that he ate some applesauce for them before I arrived. Placed comfort care orders. Care managers to continue with investigation and discharge plan on Wednesday.
--- NOTE | 2018-05-08 13:47 | NUR ---
PT RESTING COMFORTABLY. INCONTINENCE CARE AND REPOSITIONING COMPLETE. WILL INSERT DUKE CATHETER PER ORDER AT NEXT INCONTINENCE CARE. NO S/SX OF DISCOMFORT OR DISTRESS.
--- NOTE | 2018-05-08 17:20 | NUR ---
SHIFT SUMMARY. PT WITH NO S/SX OF DISCOMFORT OR DISTRESS DURING SHIFT. INCONTINCE CARE AND REPOSITIONING ROUTINELY. URINE OUTPUT MINIMAL. MEPILEX TO BILATERAL HIPS INTACT FOR PROPHOLAXIS. FAMILY IN ROOM INTERACTING WITH PT INTERMITTENTLY THROUGHOUT SHIFT.
--- NOTE | 2018-05-08 22:19 | NUR ---
1900 APPEARS TO BE RESTING. GOOD BODY ALIGNMENT. EQUAL RESPIRATIONS. NO C/O PAIN/DISCOMFORT AND NO NON-VERBAL S/SX. BED IN LOWEST POSITION. CALL LIGHT IN REACH.
--- NOTE | 2018-05-08 22:21 | NUR ---
COMFORT CARE 9 NO ACUTE DISTRESS. STATES NO PAIN. NO NOTED NON-VERBAL S/SX OF PAIN/DISCOMFORT. REFUSED ORAL CARE. BED IN LOWEST POSITION. CALL LIGHT IN REACH.
--- NOTE | 2018-05-09 00:38 | NUR ---
COMFORT CARE 2350 APPEARS TO BE RESTING COMFORTABLY. REPOSITIONING COMPLETED Q2. REMAINS NPO AND REFUSES ORAL CARE. NO ACUTE CHANGES NOTED. BED IN LOWEST POSITION. CALL LIGHT IN REACH. WCTM.
--- NOTE | 2018-05-09 04:25 | NUR ---
COMFORT CARE 0135 APPEARS TO BE RESTING COMFORTABLY. CONTINUES TO BE TURNED. NO ACUTE CHANGES. RESPIRATIONS EVEN. WCTM. BED IN LOWEST POSITION. CALL LIGHT IN REACH
--- NOTE | 2018-05-09 05:15 | NUR ---
COMFORT CARE 0315 STATED PAINFUL. SHOWING SIGNS OF PAIN. RETRIVED ROXANOL PER ORDERS; PT REFUSED AND STATED NOT IN PAIN ANY LONGER. BED IN LOWEST POSITION. CALL LIGHT IN REACH.
--- NOTE | 2018-05-09 06:20 | NUR ---
SHIFT SUMMARY ALERT TO VERBAL STIMUL. ANSWERS QUESTIONS BUT OFTEN TIMES NOT CONFUSION IS NOTED. NOTABLY PAINFUL WITH REPOSITIONING; MEDICATED PER EMAR. ORAL CARE REFUSED. NO OVERALL CHANGES OVERNIGHT. BED IN LOWEST POSITION. CALL LIGHT IN REACH. WCTM. REPORT TO ONCOMING RN.
--- NOTE | 2018-05-09 06:28 | NUR ---
COMFORT CARE 0550 APPEARED PAINFUL; SCORED A 4/5 ON CNVI SCORING; MEDICATED PER EMAR. REPOSITIONED. STILL REFUSING ORAL CARE. BED IN LOWEST POSITION. ALARM ON. CALL LIGHT IN REACH. WCTM.
--- NOTE | 2018-05-09 10:40 | NUR ---
PT RESTING COMFORTABLY. APPEARS TO BE SLEEPING WITH NO S/SX OF DISCOMFORT OR DISTRESS.
--- NOTE | 2018-05-09 16:47 | NUR ---
COMFORT CARE VISIT. Case conferenced with FÉLIX Mccormick and RN prior to my visit. Pt in left side-lying position, eyes closed. He did not wake to verbal or tactile stimuli. His breathing is even and unlabored. No nonverbal indicators of pain noted. RN reports he is stiff with position changes. He does not allow administration of any oral or sublingual meds when awake. He has not had PO intake of food/fluids for one week. Pt with attends for output. RN giving tylenol OR prn for discomfort. He feels pt's s/s are well managed at this time. No family present during my visit. Will continue to assess daily for s/s and be available as support to family as needed.
--- NOTE | 2018-05-09 18:22 | NUR ---
SHIFT SUMMARY. PT RESTING, APPEARING TO SLEEP MOST OF THE SHIFT. ROUTINE INCONTNENCE CARE AND REPOSITING. PT CONTINUES TO REFUSE ORAL CARE. PT WILL TAKE A FEW SPOONFULLS OF THICKENED LIQUIDS WHEN ALERT, ALTHOUG PT STILL COUGHS OCCASSIONALLY WITH PO INTAKE. SPOKE WITH FLANGER, SHE REPORTED THAT SHE HAS NOT YET HEARD BACK FORM APS. NO NEW CHANGES.
--- NOTE | 2018-05-10 05:29 | NUR ---
SHIFT SUMMARY PT ADMITTED FOR RHABDOMYLYSIS. COMFORT CARE PT. [facility]. SPOON FED FLUIDS. HONEY THICK LIQUIDS. CONTRACTURE TO LEGS. PT PRESENTED TO THE ED VIA EMS AFTER BEING CALLED FOR PT NO HAVING MOVED FROM POSITION ON THE COUCH X1 DAY. EMS FOUND THE PT LYING ON HIS R SIDE COVERED IN URINE AND FECES. THE PT IS NON-VERBAL AT BASELINE PER REPORT. HOWEVER, FAMILY STATES THAT THE PT TALKS TO THEM SOMETIMES WHEN HE WANTS THINGS BUT NOT OFTEN. THE PT IS NOTED TO HAVE ADVANCED DEMENTIA. THE PT WILL LIKELY NEED PLACEMENT THE PT DOES NOT SEEM WELL CARED FOR PER REPORT. THE PT IS NOTED A NEGLECTED ELDER WITH FAILURE TO THRIVE AND ADVANCED VASCULAR DEMENTIA. ST ATTEMPTED TO EVAL PT BUT PT BECAME COMBATIVE AND UNABLE TO PERFORM EVALUATION. APS IS NOTED TO BE INVOLVED. NO APPARENT ACUTE CHANGES SO FAR THIS SHIFT. Q 2 HR TURNS TOLLERATED. PT DOES NOT RESPOND OR FOLLOW DIRECTION. PT DOES NOT DEMONSTRATE ANY NON-VERBAL INDICATORS OF PAIN OR ANXIETY. FREQUENT VISUAL CHECKS IT DOES NOT APPEAR THAT PT USES CALL LIGHT APPROPRIATELY.
--- NOTE | 2018-05-10 10:06 | NUR ---
[facility] COMFORT CARE VISIT 0930 Assessed for comfort. Pt with eyes open but did not respond to verbal or tactile stimuli initially. He is in left side-lying position with hob elevated. When I said good morning he did look at me and track with his eyes. I asked him if he was hurting but had no verbal response or nods. RN reports that pt was able to say yes, when she asked him earlier if he was hurting and she administered 5 mg or Roxanol. I attempted oral care as I have done before and I got further, minimally, than previous attempts. soon as I was able to get toothette into mouth he clamped teeth closed so I was not able to do thorough oral care. Pt appears extremely dry, emaciated. He has continued with no oral intake for past week. I spent some quiet time with pt with hand on his hand. Report given to RN on my visit. No family present this am or yesterday per nursing.
--- NOTE | 2018-05-10 11:00 | NUR ---
Spoke with family in joint visit with Viviana, retail planner. Arrangements were discussed. Family seems loving and wanting to take patient home. Pt has just gotten a dose of roxanol and is resting comfortably. No edema noted, no mottling. Family is feeding patient small things - they had asked for jello to feed him. Will remain available.
--- NOTE | 2018-05-10 17:49 | NUR ---
SUMMARY PT RESTING QUIETLY IN BED, WAKES EASILY, ONLY RESPONDS WITH ONE WORD ANSWERS, HAS BEEN MED PER EMAR FOR PAIN, FAMILY HAS BEEN IN TO VISIT, CARE MANAGEMENT AND PALLIATIVE CARE HAVE BEEN IN TO SPEAK WITH THE FAMILY, PT CONT TO BE ON COMFORT CARE, WILL CONT TO MONITOR
--- NOTE | 2018-05-11 04:41 | NUR ---
SHIFT SUMMARY PT PRESENTED THIS NIGHT WITH AUDIBLE COARSE LS AND RATTLE. ATTEMPTED TO SUCTION AND ORAL CARE BUT PT PURSED LIPS TOGETHER HARD. COMPLETED WELL ABLE TO MOISTEN MOUTH. PT RESPONDED TO QUESTIONS REGARING PAIN MULTIPLE TIMES TODAY WITH NO ANSWER. PT REPOSITIONED FOR COMFORT. APPEARED TO SLEEP COMFORTABLY THROUGHOUT MOST OF THE NIGHT. WILL CONTINUE TO MONITOR.
--- NOTE | 2018-05-11 08:15 | NUR ---
Comfort Care, Palliative Care visit. Pt in favored left side lying position with eyes open. He did not respond to me but tracked with eyes. Audible upper airway crackles noted. Spoke with RN for update. FAmily spent time with pt yesterday pm and both family and Staff fed pt some dinner and ice cream, which he enjoyed but pt had noticeble cough afterwards. Aspiration suspected as this has been an ongoing problem for pt even prior to admission. Discussed use of atropine gtts prn to assist in preventing more upper airway congestion. I did not note painful behaviours at rest. RN reports moderate stiffness with position changes. Pt had just been turned recently and attends checked and found dry per RN. Will remain available for s/s management.
--- NOTE | 2018-05-11 17:21 | NUR ---
SUMMARY PT REMAINS ON COMFORT CARE, NO VISITORS IN TODAY, PT APPEARS COMFORTABLE, RESPONDS OCC WITH YES OR NO TO QUESTIONS, WILL CONT TO MONITOR
--- NOTE | 2018-05-12 03:54 | NUR ---
SHIFT SUMMARY PT STATUS PRESENTS DIFFERENTLY THIS NIGHT THEN PAST TWO NIGHT. PT MEDICATED FOR APPARENT AIR HUNGER X1 SO FAR THIS SHIFT. PT DOES APPEAR TO HAVE INCREASED RESPIRATIONS WITH AIR HUNGER FOLLOWED BY APNIC EPISODES. PT CONTINUES TO CLOSE MOUTH TIGHT WHEN OFFERED ORAL INTAKE, HYGIENE AND ATTEMPTS AT MOITURE VIA SWABS. CONTINUE TO REAPPROACH TO ASSIST WITH DRY MOUTH FOR COMFORT. PT ONLY AWAKE FOR SHORT PERIODS OF TIME THROUGHOUT THE NIGHT. PT APPEARS TO BE SLEEPING COMFORTABLY AT THIS TIME. WILL CONTINUE TO MONITOR.
--- NOTE | 2018-05-12 09:36 | NUR ---
COMFORT CARE ASSESSMENT- PT RESP RATE CHANGED AT 0300 PER REPORT FROM NIGHT RN, PT REPOSITIONED, AND CHANGED WET ATTENDS; PT BEGAN HAVING PAUSES IN RESP LASTING FOR UP TO 30 SECONDS, JUST OCCASIONALLY. FAMILY TO VISIT AFTER THIS AND GONZALES ELLISON CAME AND SPOKE TO THEM, CONTACTED PALLIATIVE CARE TO SPEAK WITH FAMILY ABOUT PT CHANGES.
--- NOTE | 2018-05-12 09:40 | NUR ---
PT FAMILY PRESENT PREPARING TO TAKE THE PT HOME ON HOSPICE, PT SPOUSE IS ON HOSPICE WELL PER FAMILY REPORT SPOUSE JUST TURNED 100. PT SLEEPING WHILE FAMILY WAS IN THE ROOM.
--- NOTE | 2018-05-12 14:27 | NUR ---
PT REPOSITIONED TO THE RIGHT SIDE. PT HAS NO S&S OF PAIN AT THIS TIME WILL CONT TO MONITOR.
--- NOTE | 2018-05-12 14:28 | NUR ---
PT ROLLED AND CHANGED BARRIER APPLIED TO COCCYX, NO NOTED SKIN BREAKDOWN AT THIS TIME. PT RESP SEEM WET AT THIS TIME, NO GURGLE, RESP RATE SLOWER THAN THIS AM. PT EYES GLASSY SEEMING TO STARE OUT THE WINDOW, REPOSITIONED TO LEFT SIDE (PT PREFERED SIDE) NO S&S OF PAIN AT THIS TIME, PT WAS A LITTLE STIFF TO REPOSITION, WILL CONT TO MONITOR.
--- NOTE | 2018-05-12 14:44 | NUR ---
Assessed comfort care patient. Nurse reports that he has started pausing breathing intermittently. At my time of visit, the patient was turned toward the window in the room and he was looking out of it. He seems content and comfortable. Family has been in and has left. No other concerns from nurseLeatha. Family has asked repeatedly if the pt can come home. Other family members are at home, that haven't been able to visit. They would like to see him for the little time he has left. Pt to discharge today. Will remain available.
[2018-05-12] MEDS ORDERED: Acephen120 MG PR (15:08)
[2018-05-12] MEDS ORDERED: DOCU100 PO (15:09)
[2018-05-12] MEDS ORDERED: BISA10S PR (15:09)
[2018-05-12] MEDS ORDERED: LORA1 PO (15:10)
[2018-05-12] MEDS ORDERED: Morphine S20 MG/5 ML PO (15:12)
[2018-05-12] MEDS ORDERED: SCOPOLAMINE1 EACH TD (15:14)
--- NOTE | 2018-05-12 16:13 | NUR ---
discharge note- pt discharged to hospice. oral care complete attends dry, slight rattle with shallow rapid breathing medicated with scopolamine patch. pt sent by [facility] transport to home. pt family contacted by sammy juárez and given discharge instructions by phone, hospice admit scheduled for 1630 per report from sammy may.
== END 2018-05-12 15:45 | disposition hospice, home (50) | DRG 884 ==
LOC: ER 10:15 → MEDS 12:32
PROVIDERS: Emergency Medicine; Hospitalist; ADMIT Internal Medicine
DX: F01.51 Vascular dementia, unspecified severity, with behavioral disturbance (principal); M62.82 Rhabdomyolysis; Z68.1 Body mass index [BMI] 19.9 or less, adult; T74.01XA Adult neglect or abandonment, confirmed, initial encounter; R47.01 Aphasia; R64 Cachexia; E44.1 Mild protein-calorie malnutrition; Z86.73 Personal history of transient ischemic attack (TIA), and cerebral infarction without residual deficits; R62.7 Adult failure to thrive; Z51.5 Encounter for palliative care; Z66 Do not resuscitate; H91.90 Unspecified hearing loss, unspecified ear; Z79.02 Long term (current) use of antithrombotics/antiplatelets; Z23 Encounter for immunization
CPT/HCPCS: 36415; 51701; 71045; 73502; 80048; 80053; 81001; 82550; 82553; 83735; 83880; 84484; 85025; 90686; 92526; 92610; 93005; 93010; 96360; 96361; 97110; 97162; 97166; 97530; 97535; 99285-25; G0008; J1650; J3480; J7030; J7120